=== PATIENT | female | born 1950 | race Caucasian/White ===

== ENCOUNTER 2016-05-05 22:28 | Emergency (ER) | payer OTHER ==
--- NOTE | 2016-05-05 23:16 | PROVIDER DOCUMENTATION ---
HPI-General Adult - General Chief Complaint: Shortness of Breath Stated Complaint: TROUBLE BREATHING Time Seen by Provider: 05/05/16 23:00 Source: patient Allergies/Adverse Reactions: Patient Allergies Allergy/AdvReac Type Severity Reaction Status Date / Time aripiprazole [From Abilify] AdvReac Mild Unknown Verified 05/05/16 22:37 duloxetine HCl * AdvReac Mild Unknown Verified 05/05/16 22:37 [From Cymbalta] Home Medications: Home Medication List Medication Instructions Recorded Confirmed Last Taken Type Clonazepam [Klonopin] 0.5 mg PO PRN PRN 12/09/11 05/05/16 05/05/16 History Zolpidem [Ambien] 10 mg PO QHS 12/09/11 05/05/16 05/04/16 History Citalopram [Celexa] 40 mg PO DAILY 05/03/12 05/05/16 05/05/16 History Quetiapine [Seroquel] 50 mg PO QHS 05/03/12 05/05/16 05/04/16 History Amlodipine [Norvasc] 5 mg PO DAILY 07/08/15 05/05/16 05/05/16 History Lisinopril 10 mg PO DAILY 07/08/15 05/05/16 05/05/16 History Mirtazapine [Remeron] 30 mg PO QHS 09/07/15 05/05/16 05/04/16 History Oxycodone HCl/Acetaminophen 1 tab PO BID PRN PRN 09/07/15 05/05/16 05/05/16 20: 00 History [Percocet 7.5-325 mg Tablet] Potassium Chloride [K-Tab] 10 meq PO DAILY #10 tablet.er 09/07/15 05/05/1605/05 20:00 Rx Tizanidine HCl [Zanaflex] 4 mg PO Q12H PRN PRN #10 tablet 01/08/16 05/05/1612/12 Rx Levofloxacin [Levaquin] 500 mg PO DAILY #10 tablet 05/05/16 Unknown Rx Prednisone 20 mg PO BID #10 tablet 05/05/16 Unknown Rx - History of Present Illness -Gen Adult Nature of Presenting Problems: PT IS A 65YOF PRESENTING TO THE ED C/O SOB. PT STATES SHE HAS PAIN UNDER RIGHT BREAST WHEN SHE TAKES A DEEP BREATHE AND SHE ALSO ASKED FOR DILAUID FOR HER PAIN. NO OTHER COMPLAINTS NOTED AT THIS TIME Location of Pain/Injury: reports: chest Pain Radiation: reports: no radiation Quality of Pain: reports: aching Severity: reports: mild Onset/Duration: reports: 24 hours ago Timing: reports: still present Context/Activities at Onset: reports: light activity Modifying Factors: improves with: nothing Associated Symptoms: reports: anxiety, chest pain, shortness of breath, pain with inspiration. denies: diaphoresis, fatigue, nausea, vomiting, weakness Similar Symptoms Previously?: No Recently seen or treated by another doctor?: No Review of Systems - Adult - REVIEW OF SYSTEMS - ADULT Constitutional: reports: no symptoms reported Eyes: reports: no symptoms reported Ears, Nose, Mouth & Throat: reports: no symptoms reported Cardiovascular: reports: see HPI, chest pain. denies: palpitations, syncope Respiratory: reports: see HPI, cough, shortness of breath. denies: wheezing Gastrointestinal: reports: no symptoms reported Genitourinary: reports: no symptoms reported Musculoskeletal: reports: no symptoms reported Integumentary: reports: no symptoms reported Neurological: reports: no symptoms reported Psychiatric: reports: no symptoms reported Endocrine: reports: no symptoms reported Hematologic/Lymphatic: reports: no symptoms reported Allergic/Immunologic: reports: no symptoms reported All Other Systems: Reviewed and Negative Past History - Adult - PAST MEDICAL HISTORY-ADULT Review of Records: reports: Old Records Reviewed, Nursing Assessment Review, Medications Reviewed, Social history reviewed & non-contributory. Major Childhood Illnesses: reports: denies history Cardiovascular: reports: HTN Respiratory: reports: sleep apnea Gastrointestinal: reports: denies history Obstetrical/Gynecological: reports: denies history Genitourinary: reports: denies history Musculoskeletal: reports: arthritis, fibromyalgia Neurological: reports: headaches/migraines Endocrine/Immune: reports: denies history Other Conditions: reports: denies history - PRIOR SURGERIES/PROCEDURES Surgical/Procedure History: reports: hysterectomy, back/neck - IMMUNIZATION STATUS Childhood Immunizations: See Nurse Assessment Flu Vaccine: See Nurse Assessment - FAMILY HISTORY Family History: reviewed, not pertinent - SOCIAL HISTORY Smoking: cigarettes, greater than 1 pack/day Provider spent 3-5 mins advising pt. on dangers of tobacco.: Discussed manners to quit use, and f/u contacts for add'l counseling. Substance Use: none/never, denies Alcohol Use Frequency: never Living Situation: family Physical Exam-General - PHYSICAL EXAM-ADULT Initial Vital Signs Reviewed: Yes - CONSTITUTIONAL General Appearance: appears well, alert, moderate distress - EYES Eyes: PERRL/EOMI, pink conjunctivae, fundi clear, no AV nicking - HEAD, EARS, NOSE, MOUTH & THROAT HENMT: normocephalic/atraumatic, moist mucous membranes, normal ENT inspection, TMs normal, pharynx normal - NECK Neck: non-tender, full range of motion, supple, normal inspection - RESPIRATORY Respiratory: lungs clear, normal breath sounds, no respiratory distress, no accessory muscle use. negative: chest non-tender, no pleuratic chest pain, accessory muscle use, wheezing - CARDIOVASCULAR Cardiovascular: normal peripheral pulses, regular rate, rhythm, no edema, no gallop, no JVD, no murmur - GASTROINTESTINAL (ABDOMEN) Abdominal Exam: normal bowel sounds, non tender, soft, no organomegaly, no pulsatile mass - LYMPHATIC Lymphatic: no adenopathy - MUSCULOSKELETAL Back Exam: normal inspection, no CVA tenderness, no vertebral tenderness Extremity: normal range of motion, non-tender, normal gait, normal inspection, no pedal edema, no calf tenderness, normal capillary refill, pelvis stable - SKIN Integumentary: normal color, normal turgor, warm/dry - NEUROLOGIC Neurologic: cardiology nurse II-XII nml as tested, grossly normal, no motor/sensory deficits - PSYCHIATRIC Psych/Mental Status: normal mood/affect, normal thought content, normal thought process, oriented x 3 Progress - PLAN OF CARE/RESULTS Progress/Plan/Lab Results: Orders Category Date Time Status CHEST-2 VIEWS [RAD] Stat Exams 05/05/16 23:05 Taken EKG [EKG] Stat Ther 05/05/16 23:06 Ordered Vital Signs - 24 hr 05/05/16 22:30 Temperature 97.6 F Pulse Rate 91 H Respiratory 20 Rate Blood Pressure 125/75 O2 Sat by Pulse 99 Oximetry Departure - Departure Time of Disposition Order: 23:38 DIAGNOSIS: Pleurisy Disposition: HOME 01 Certified Medical Emergency: Emergent Condition: Stable Prescriptions: Levofloxacin [Levaquin] 500 mg PO DAILY #10 tablet Prednisone 20 mg PO BID #10 tablet Attestation - Scribe Verification/Attestation Scribe:: Julia Ashley Acting as Scribe for:: Jameson Lawrence Scribe documention review:: This chart was documented by a scribe and accurately reflects the service the provider performed and the decisions made by the provider. Physician Attestation - Physician Attestation I, the provider, attest to the following statement:: Jameson Lawrence Physician documentation Attestation:: This documentation recorded by the scribe accurately reflects the service I personally performed and the decisions made by me.
[2016-05-05] MEDS ORDERED: DILAUDID IM ONE (23:42)
[2016-05-05] MEDS ORDERED: PHENERGAN IM ONE (23:43)
[2016-05-06 00:09] VITALS: BP 127/73
--- NOTE | 2016-05-06 00:39 | ED EKG INTERP ---
EKG Interpretation - EKG Time of EKG reading by physician:: 23:22 EKG Read and Signed by:: Jameson Lawrence EKG Interpretation (*Must complete 3 of following elements*): Abnormal Rate: 84 Rhythm: NSR [place]: normal QRS: other (SEPTAL INFARCT, AGE UNDETERMINED) Attestation - Scribe Verification/Attestation Scribe:: Julia Ashley Acting as Scribe for:: Jameson Lawrence Scribe documention review:: This chart was documented by a scribe and accurately reflects the service the provider performed and the decisions made by the provider. Physician Attestation - Physician Attestation I, the provider, attest to the following statement:: Jameson Lawrence Physician documentation Attestation:: This documentation recorded by the scribe accurately reflects the service I personally performed and the decisions made by me.
--- NOTE | 2016-05-06 06:31 | EKG Report ---
Test Performed on : 05/05/2016 11:21:11 PM Test Reason : SOB, right chest pain Blood Pressure : / mmHG Vent. Rate : 084 BPM Atrial Rate : 084 BPM P-R Int : 174 ms QRS Dur : 078 ms QT Int : 368 ms P-R-T Axes : 031 -19 018 degrees QTc Int : 434 ms Normal sinus rhythm. Septal infarct , age undetermined Abnormal ECG When compared with ECG of 08-JAN-2016 14:36, Septal infarct is now present ST now depressed in Anterior leads Nonspecific T wave abnormality now evident in Anterior leads Unconfirmed Result
--- NOTE | 2016-05-06 12:54 | Diag Imaging Result Document ---
PROCEDURE NAME: CHEST-2 VIEWS - 05/05/2016 CHEST, 2 VIEWS: COMPARISON: 08/28/2015. FINDINGS: Heart size is normal. There is apparent mild interstitial scarring. There is no acute consolidation, pleural effusion, or pneumothorax identified. There is exaggerated kyphosis at the lower thoracic spine with degenerative disease noted, similar to the previous exam. IMPRESSION: Mild interstitial scarring. No acute changes.
== END 2016-05-06 00:18 | disposition home or self-care (01) ==
LOC: P.ED 22:28
DX: R09.1 Pleurisy (principal); R06.02 Shortness of breath; R07.9 Chest pain, unspecified; I10 Essential (primary) hypertension; M19.90 Unspecified osteoarthritis, unspecified site; M79.7 Fibromyalgia; R51 Headache; R94.31 Abnormal electrocardiogram [ECG] [EKG]; Z79.899 Other long term (current) drug therapy; F17.210 Nicotine dependence, cigarettes, uncomplicated; Z71.6 Tobacco abuse counseling
CPT/HCPCS: 71020; 93005; 96372; J1170; J2550

== ENCOUNTER 2018-03-14 09:48 | Inpatient (IN) ==
[2018-03-14] MEDS ORDERED: NS 2,000 ML ONE (10:00)
[2018-03-14] MEDS ORDERED: NS 1,000 ML IV ONE ×2 (10:05→10:09)
[2018-03-14] MEDS ORDERED: NS 250 ML IV ONE (10:09)
[2018-03-14 10:28] LABS: BASO# 0.01 X1000 (0.0-0.2); BASO% 0.1 % (0.0-0.8); EOS# 0.02 X1000 (0.0-0.7); EOS% 0.2 % (0.0-10.0); HEMOGLOBIN 12.7 g/dL (12.0-16.0); IMM GRAN# 0.03 X1000 (0.0-0.04); IMM GRAN% 0.3 % (0.0-0.5); LYMPH# 1.41 X1000 (1.2-3.4); LYMPH% 13.4 % (20.5-51.1); MCH 30.9 PG (27-31); MCHC 33.4 g/dL (33-37); MCV 92.5 FL (81-99); MONO# 0.38 X1000 (0.11-0.59); MONO% 3.6 % (1.7-9.3); MPV 9.4 FL (7.4-10.4); NEUT# 8.68 X1000 (1.4-6.5); NEUT% 82.4 % (42.2-75.2); PLT 266 X1000 (130-400); RBC 4.11 XMIL (4.2-5.4); RDW 14.1 % (11.5-14.5); WBC 10.53 X1000 (4.8-10.8)
--- NOTE | 2018-03-14 10:42 | Diag Imaging Result Doc PS360 ---
EXAM: CHEST-PORTABLE 03/14/2018 HISTORY: ams TECHNIQUE: AP upright portable at 1040 COMMENT: The inspiration is suboptimal. There is some questionable platelike atelectasis in the lower mid right lung probably in the lower lobe. Otherwise the appearance of the chest has not changed significantly since 06/02/2016. IMPRESSION: Platelike atelectasis on the right. Electronically signed by Otf [place] 03/14/2018 10:40 AM
--- NOTE | 2018-03-14 10:44 | EKG Report ---
Test Performed on : 03/14/2018 09:57:33 AM Test Reason : ams Blood Pressure : / mmHG Vent. Rate : 063 BPM Atrial Rate : 063 BPM P-R Int : 174 ms QRS Dur : 082 ms QT Int : 422 ms P-R-T Axes : 011 -05 019 degrees QTc Int : 431 ms Sinus rhythm. with premature atrial complexes. Low voltage QRS Cannot rule out Anterior infarct (cited on or before 05-MAY-2016) Abnormal ECG When compared with ECG of 05-MAY-2016 23:21, premature atrial complexes. are now present Questionable change in initial forces of Anteroseptal leads Unconfirmed Result
--- NOTE | 2018-03-14 10:49 | Diag Imaging Result Doc PS360 ---
CT HEAD W/O CONTRAST - 03/14/2018 INDICATION: ams COMPARISON: 12/30/2014 FINDINGS: The ventricles and sulci are normal in size and contour. No intracranial mass or hemorrhage. The skull is intact. The sinuses mastoids and middle ears are clear. IMPRESSION: Negative exam. This exam was performed using automated exposure control, adjustment of mA or kV according to patient size, and/or use of iterative reconstruction technique Electronically signed by Raymundo Pires 03/14/2018 10:47 AM
[2018-03-14 10:58] LABS: INR 1.19
[2018-03-14 10:59] LABS: PTT 44.6 Seconds (22.3-41.8)
[2018-03-14 11:15] LABS: ALLEN TEST YES; BE -3.8 mmoll (-3.0-3.0); BLOOD TYPE ARTERIAL; HCO3-(ACT) 21.9 mmoll (20.0-26.0); METHB 1.4 % (0.0-1.5); O2(CT) 15.1 mL/dL (15.0-23.0); PCO2(98.6) 35 mmHg (35-45); PO2(98.6) 77 mmHg (60-100); SAMPLE BLOOD; SAO2 97.5 % (95.0-100.0); THB 11.5 g/dL (11.5-17.4); pH(98.6) 7.38 (7.35-7.45)
[2018-03-14 11:18] LABS: MODALITY CANNULA
[2018-03-14 11:20] LABS: ALB/GLOB RATIO 0.9; ALBUMIN 3.1 g/dL (3.5-5.0); CALCIUM 8.6 mg/dL (8.8-10.2); CREATININE 1.3 mg/dL (0.5-0.9); POTASSIUM 3.1 mmol/L (3.5-5.1); TOTAL BILIRUBIN 0.3 mg/dL (0.20-1.00); TOTAL PROTEIN 6.7 g/dL (6.3-8.3)
[2018-03-14 11:30] LABS: URINE SOURCE CATH
[2018-03-14 11:41] LABS: BILIRUBIN URINE SMALL (NEGATIVE); BLOOD URINE TRACE (NEGATIVE); COLOR YELLOW; GLUCOSE URINE NEGATIVE (NEGATIVE); KETONE URINE NEGATIVE (NEGATIVE); LEUKOCYTES URINE TRACE (NEGATIVE); NITRITE URINE NEGATIVE (NEGATIVE); PROTEIN URINE 50 mg/dL (NEGATIVE); SP GRAVITY URINE 1.017; TURBIDITY URINE HAZY (CLEAR); UROBILINOGEN URINE 3 mg/dL (NORMAL)
[2018-03-14 11:51] LABS: UR EPITHELIAL CELLS >10 /HPF (<10); URINE BACTERIA NEGATIVE /HPF; URINE RBC <10 /HPF (<10); URINE WBC <10 /HPF (<10)
[2018-03-14 11:52] LABS: CK INDEX 0.4 (0.0-2.5); CK-MB 1.96 ng/mL (0.0-5.0)
[2018-03-14 12:06] LABS: URINE CASTS NONE SEEN; URINE CRYSTALS NONE SEEN; URINE SMALL ROUND CELLS RENAL PRESENT; URINE YEAST NONE SEEN
[2018-03-14] MEDS ORDERED: ZOSYN 3.375 GM in NS 50 ML IV ONE (12:13)
[2018-03-14] MEDS ORDERED: VANCOMYCIN 1 GM/NS 1 GM/250 ML IVPB IV ONE (12:13)
[2018-03-14] MEDS ORDERED: ALBUTEROL NEB INH ONE (12:14)
[2018-03-14 13:15] LABS: UR AMPHETAMINES QUAL NONE DETECTED (NONE DETECT); UR BARBITUATES QUAL NONE DETECTED (NONE DETECT); UR BENZODIAZEPIN QUAL PRESUMPTIVE POSITIVE (NONE DETECT); UR CANNABINOIDS QUAL NONE DETECTED (NONE DETECT); UR COCAINE QUAL NONE DETECTED (NONE DETECT); UR METHADONE QUAL NONE DETECTED (NONE DETECT); UR OPIATES QUAL NONE DETECTED (NONE DETECT); UR OXYCODONE QUAL PRESUMPTIVE POSITIVE (NONE DETECT); UR PCP QUAL NONE DETECTED (NONE DETECT)
[2018-03-14] MEDS ORDERED: TYLENOL PO PRN (13:56)
[2018-03-14] MEDS ORDERED: ZOFRAN IV PRN (13:56)
[2018-03-14] MEDS: NICODERM PATCH TD SCH (14:15)
--- NOTE | 2018-03-14 14:30 | Diag Imaging Result Doc PS360 ---
EXAM: CT THORAX W/O CONTRAST HISTORY: sob; heavy smoker; hypotensive TECHNIQUE: Emergency CT chest without contrast COMPARISON: 01/12/2017 FINDINGS: No pleural effusions. No cardiomegaly. No thoracic aortic aneurysm. Moderate atherosclerosis. There calcified mediastinal and hilar lymph nodes with scattered granuloma. No consolidation. Small stable nodule laterally in the right lung on image 56. No bronchiectasis. There is a small amount of parenchymal scarring. Limited images through the upper abdomen reveal an enlarged left adrenal gland and fatty infiltration of the liver. IMPRESSION: Stable CT of the chest. This exam was performed using automated exposure control, adjustment of mA or kV according to patient size, and/or use of iterative reconstruction technique. Electronically signed by Des Rodriguez 03/14/2018 2:28 PM
[2018-03-14] MEDS: DUONEB (A & A) INH SCH ×2 (15:00→21:36)
[2018-03-14] MEDS ORDERED: KLOR-CON PO ONE (15:07)
--- NOTE | 2018-03-14 15:13 | PROVIDER DOCUMENTATION ---
This chart was entered by Erum Cifuentes Scribe, acting as scribe for Sanjay Alvarez PA. HPI-General Adult - General Chief Complaint: Altered Mental Status Stated Complaint: AMS Time Seen by Provider: 03/14/18 09:59 Source: patient, family Allergies/Adverse Reactions: Patient Allergies Allergy/AdvReac Type Severity Reaction Status Date / Time aripiprazole [From Abilify] AdvReac Mild Unknown Verified 03/14/18 10:24 duloxetine HCl * AdvReac Mild Unknown Verified 03/14/18 10:24 [From Cymbalta] Home Medications: Home Medication List Medication Instructions Recorded Confirmed Last Taken Type Clonazepam [Klonopin] 0.5 mg PO PRN PRN 12/09/11 01/12/17 05/05/16 History Zolpidem [Ambien] 10 mg PO QHS 12/09/11 01/12/17 05/04/16 History Citalopram [Celexa] 40 mg PO DAILY 05/03/12 01/12/17 05/05/16 History Quetiapine [Seroquel] 50 mg PO QHS 05/03/12 01/12/17 05/04/16 History Amlodipine [Norvasc] 5 mg PO DAILY 07/08/15 01/12/17 05/05/16 History Lisinopril 10 mg PO DAILY 07/08/15 01/12/17 05/05/16 History Mirtazapine [Remeron] 30 mg PO QHS 09/07/15 01/12/17 05/04/16 History Oxycodone HCl/Acetaminophen 1 tab PO BID PRN PRN 09/07/15 01/12/17 05/05/16 20: 00 History [Percocet 7.5-325 mg Tablet] Potassium Chloride [K-Tab] 10 meq PO DAILY #10 tablet.er 09/07/15 01/12/1705/05 20:00 Rx Tizanidine HCl [Zanaflex] 4 mg PO Q12H PRN PRN #10 tablet 01/08/16 01/12/1712/12 Rx Sulfamethoxazole/Tmp D.s. [Septra 1 ea PO BID #14 tab 01/12/17 Unknown Rx Ds] - History of Present Illness -Gen Adult Nature of Presenting Problems: 67 yof presents to the ed with c/o confusion per family and slow to answer. pt has had recent fall. on exam pt is a/o x3 and no distress Location of Pain/Injury: reports: none Pain Radiation: reports: no radiation Quality of Pain: reports: none Severity: reports: mild (confusion) Onset/Duration: reports: gradual Timing: reports: gone now Context/Activities at Onset: reports: light activity Modifying Factors: improves with: nothing Associated Symptoms: reports: cough, other (fall and mild confusion). denies: back/neck pain, chest pain, dizziness, malaise, muscle aches, nausea, seizure, shortness of breath, weakness, trouble walking Similar Symptoms Previously?: No Recently seen or treated by another doctor?: No Review of Systems - Adult - REVIEW OF SYSTEMS - ADULT Constitutional: denies: see HPI, fever Eyes: reports: no symptoms reported Ears, Nose, Mouth & Throat: reports: no symptoms reported Cardiovascular: denies: chest pain, palpitations, syncope Respiratory: reports: see HPI, cough. denies: shortness of breath, wheezing Gastrointestinal: denies: abdominal pain, diarrhea, nausea, vomiting Genitourinary: reports: no symptoms reported Musculoskeletal: denies: back pain, neck pain Integumentary: reports: no symptoms reported Neurological: reports: see HPI, other (mil confusion). denies: ataxia, dizziness/vertigo, headache/migraines, numbness, paresthesia, seizure, slurred speech Psychiatric: reports: no symptoms reported Endocrine: reports: no symptoms reported Hematologic/Lymphatic: reports: no symptoms reported Allergic/Immunologic: reports: no symptoms reported All Other Systems: Reviewed and Negative Past History - Adult - PAST MEDICAL HISTORY-ADULT Review of Records: reports: Old Records Reviewed, Nursing Assessment Review, Medications Reviewed, Social history reviewed & non-contributory. Major Childhood Illnesses: reports: denies history Cardiovascular: reports: HTN Respiratory: reports: sleep apnea Gastrointestinal: reports: denies history Obstetrical/Gynecological: reports: denies history Genitourinary: reports: denies history Musculoskeletal: reports: arthritis, chronic pain, fibromyalgia Neurological: reports: headaches/migraines Endocrine/Immune: reports: denies history Other Conditions: reports: denies history - PRIOR SURGERIES/PROCEDURES Surgical/Procedure History: reports: hysterectomy, back/neck - IMMUNIZATION STATUS Childhood Immunizations: See Nurse Assessment Flu Vaccine: See Nurse Assessment - FAMILY HISTORY Family History: reviewed, not pertinent - SOCIAL HISTORY Smoking: cigarettes, greater than 1 pack/day Provider spent 3-5 mins advising pt. on dangers of tobacco.: Discussed manners to quit use, and f/u contacts for add'l counseling. Substance Use: denies Alcohol Use Frequency: never Living Situation: family Physical Exam-General - PHYSICAL EXAM-ADULT Initial Vital Signs Reviewed: Yes - CONSTITUTIONAL General Appearance: appears well, alert, no apparent distress, slow to respond - EYES Eyes: PERRL/EOMI, pink conjunctivae - HEAD, EARS, NOSE, MOUTH & THROAT HENMT: moist mucous membranes, normal ENT inspection - NECK Neck: non-tender, full range of motion, supple, normal inspection - RESPIRATORY Respiratory: chest non-tender, decreased breath sounds, wheezing - CARDIOVASCULAR Cardiovascular: normal peripheral pulses, regular rate, rhythm - GASTROINTESTINAL (ABDOMEN) Abdominal Exam: normal bowel sounds, non tender, soft - GENITOURINARY Female Genitalia/Pelvic Exam: deferred, other (strong urine smell) Rectal Exam: deferred Hemoccult Exam: deferred - LYMPHATIC Lymphatic: no adenopathy - MUSCULOSKELETAL Back Exam: normal inspection, no CVA tenderness, no vertebral tenderness Extremity: normal range of motion, non-tender, normal inspection, no pedal edema , no calf tenderness, normal capillary refill - SKIN Integumentary: normal color, normal turgor, warm/dry, other (nicotine stained finger tips) - NEUROLOGIC Neurologic: grossly normal, no motor/sensory deficits - PSYCHIATRIC Psych/Mental Status: normal mood/affect, normal thought content, normal thought process, oriented x 3 Progress - PLAN OF CARE/RESULTS Progress/Plan/Lab Results: Laboratory Results - last 24 hr 03/14/18 09:57 POC Glucose 144 H Orders Category Date Time Status 0.9% Sodium Chloride Inj [Ns] 1,000 ml Med 03/14/18 10:00 Discontinued .ROUTE As Directed Patient seen and examined by Dr. Rodríguez. Result Diagrams: 03/14/18 10:10 03/14/18 10:10 - REASSESSMENT Reassessment #1 Time Reassessed: 11:02 Status: improving Reassessment #2 Time Reassessed: 12:29 Status: unchanged - EKG 1 Time of EKG reading by physician:: 09:57 EKG Read and Signed by:: Rosalio Rodríguez EKG Interpretation (*Must complete 3 of following elements*): Abnormal Rate: 63 Rhythm: sinus rhythm with premature atrial complexes QRS: normal [place] Interval: normal - XRAY 1 XRAY: Bilateral XRAY Study: Chest (EXAM: CHEST-PORTABLE 03/14/2018 HISTORY: ams TECHNIQUE: AP upright portable at 1040 COMMENT: The inspiration is suboptimal. There is some questionable platelike atelectasis in the lower mid right lung probably in the lower lobe. Otherwise the appearance of the chest has not changed significantly since 06/02/2016. IMPRESSION: Platelike atelectasis on the right. Electronically signed by Otf [place] 03/14/2018 10:40 AM 1040 Interpreting Physician: Otf [place] MD Dictated Date/Time: 03/14/18 1039 cc: Sanjay Alvarez; Justice Jaimes MD) - CT/MRI 1 CT Study: Head (CT HEAD W/O CONTRAST - 03/14/2018 INDICATION: ams COMPARISON : 12/30/2014 FINDINGS: The ventricles and sulci are normal in size and contour. No intracranial mass or hemorrhage. The skull is intact. The sinuses mastoids and middle ears are clear. IMPRESSION: Negative exam. This exam was performed using automated exposure control, adjustment of mA or kV according to patient size, and/or use of iterative reconstruction technique Electronically signed by Raymundo Pires 03/14/2018 10:47 AM 03/14/18 1047 Interpreting Physician: Raymundo Pires MD Dictated Date/Time: 03/14/18 1045 cc: Sanjay Alvarez; Justice Jaimes MD) - CONSULTS/PCP/HOSPITALIST Notification #1 *Consult/PCP/Hospitalist*: hospitalist dr balderas Time Discussed: 12:29 Reason/Comments: ams falls Consult Disposition: Admit Departure - Departure Date of Disposition Decision: 03/14/18 Time of Disposition Decision: 12:32 DIAGNOSIS: Tobacco use disorder, Elevated lactic acid level, Hyponatremia Altered mental status Qualifiers: Altered mental status type: unspecified Qualified Code(s): R41.82 - Altered mental status, unspecified Fall Qualifiers: Encounter type: initial encounter Qualified Code(s): W19.XXXA - Unspecified fall, initial encounter Hypotension Qualifiers: Hypotension type: unspecified hypotension type Qualified Code(s): I95.9 - Hypotension, unspecified Disposition: ADMITTED INPATIENT 09 Certified Medical Emergency: Emergent Condition: Fair Referrals and Follow-Ups: Justice Jaimes MD [Primary Care Provider] - Discharge Education: Steps to Quit Smoking, [id number] - Critical Care Note This patient required my direct & personal management of CC.: Yes Total Time (mins): 45 Critical Care Statement: This patient required my direct personal management to treat or rule out processes, the absence of which, could potentiallly result in sudden, clinically significant life or limb threatening deterioration. Attestation - Physician/ ÁNGEL Attestation Patient care was provided by Advanced Practice Provider:: Yes Advanced Practice Provider:: Sanjay Alvarez Advanced Practice Provider documentation review:: The Mid-level provider documentation, treatment plan and medical decision making was reviewed by the physician who agrees with all treatment and medical decision making by the P. The physician spent face to face time with patient:: Yes Advanced Practice Provider documentation review:: Supervising physician onsite and consulted in the evaluation and care of this patient. The physician did have a face to face encounter with the patient. This chart was documented by the indicated scribe, (Erum Cifuentes Scribe) and accurately reflects the services I performed and decisions made by me, Sanjay Alvarez PA, as attested by the provider's signature.
--- NOTE | 2018-03-14 15:26 | HISTORY AND PHYSICAL ---
PRIMARY CARE PROVIDER: Dr. Justice Jaimes. She also has a pain clinic physician in [place]. CHIEF COMPLAINT: Falls, dizziness, difficulties with her words coming out right , and burning with urination. HISTORY OF PRESENT ILLNESS: Ms. Jamila Dennis is a 67-year-old female with a medical history of chronic back pain that she goes to a pain clinic for, depression, anxiety, migraines, and apparently, per one of the daughters, she tends to have self medication issues with her pain medication and anxiety medication. Back in 2010 she was admitted her for some of the same kind of complaints or similar complaints. At that time, she was seen by Dr. Oscar and he felt like this was a medication effect. So, according to her, for the past few weeks she has been planning to move out. She has noticed that she has had the hand shakes, cannot close her right hand, she has been having some pain in her right ankle and right great toe due to a fall, and she has had frequent falls that has been going on for the last month and a half. According to the grandson, who was at the bedside, she fell five times yesterday and she has a left forearm skin tear. When further questioning on her medication intake, she states that she took 2 mg of Klonopin. She took her pain medication and repeated taking her pain medication one other time and her muscle relaxers. She is also on antihypertensive medications, which she has been continuing to take, and when she presented here, she presented here with a low blood pressure in the 80s. The highest it has gotten up to is the 90s. She does have some dizziness associated with her falls. She also has complaint of a little over a week ago having a headache with fever, body aches, and bladder pain. She states that she is still having burning with her urination. She is having frequency and urinary incontinence. She was given a prescription this past Sunday for Bactrim that she has been taking but symptoms have not completely improved, so they came here with the complaints of falls, dizziness, and burning urination. Currently, she has received IV fluid hydration. She does have an elevated lactate with the low blood pressure, but otherwise all other labs are normal and vitals as well. The patient will be transferred to [facility] to monitor the blood pressure a little better but likely will just need IV fluid hydration and allow her pain medications to slowly decrease in her system and her antihypertensives also to get out of her system as well. Otherwise, she is stable. PAST MEDICAL HISTORY: 1. Depression and anxiety. 2. Migraines. 3. Constipation. 4. Obstructive sleep apnea. She used to use a CPAP but had lost around 30 pounds and she does not wear it anymore. 5. Arthritis. 6. Urinary incontinence with a couple of surgeries for that. 7. COPD. 8. CKD stage 2. 9. Hypertension. 10.Chronic back pain. She is followed by pain clinic in [place]. SURGICAL HISTORY: 1. Hysterectomy. 2. Bladder sling x2. 3. Tonsillectomy. 4. Three or four months ago she had an EGD and colonoscopy. SOCIAL HISTORY: One to two packs per day of smoking for at least 50+ years. Denies alcohol or illicit drug use, but apparently reported by family she does tend to self medication herself with her prescription medications. She has two daughters and one son. She lives with one of her daughters and her two grandsons. Apparently, her also around four years ago. FAMILY HISTORY: Mother's side of the family - breast cancer and diabetes. Father's side of the family - diabetes, thyroid disease, and heart disease. ALLERGIES: Hydrocodone causes itching and amoxicillin causes diarrhea. She also has an allergy to aripiprazole and duloxetine. HOME MEDICATIONS: Have not been verified but she takes Klonopin, muscle relaxer, pain medication, and antihypertensive. We will reevaluate home medications once reconciled. REVIEW OF SYSTEMS: A 14-point review of systems are complete and all are negative except as those mentioned above in the HPI. PHYSICAL EXAMINATION: VITAL SIGNS: Temperature 99. Heart rate 70. Respiratory rate 18. Blood pressure 88/51. O2 saturation 98% on 2 liters. Height 5 feet 0 inches tall, 170 pounds, BMI 33.2. GENERAL: Ms. Jamila Dennis is a 67-year-old female. She is alert. She is able to answer most questions appropriately. HEENT: Atraumatic and normocephalic. Pupils are equal, round and reactive to light. Extraocular movements intact. Mucous membranes are dry. NECK: Trachea midline. CARDIOVASCULAR: S1, S2, regular rate and rhythm. No rubs, gallops, or murmurs. No lower extremity edema. +2 dorsalis and radial pulses. Negative for JVD or carotid bruits. PULMONARY: Clear to auscultation with bilateral breath sounds. Decreased in the bases. No accessory muscle use or work of breathing noted. Tolerating 2 liters nasal cannula. GASTROINTESTINAL: Soft, nontender, nondistended. Positive bowel sounds x4. EXTREMITIES: Moves all extremities equally with decreased range of motion. NEUROLOGICAL: Alert and oriented x3, follows commands. Sensory is intact. SKIN: Warm, dry, and intact except for left forearm skin tear. LABORATORY DATA: White blood cells 10,000, hemoglobin 12, hematocrit 38, platelet count 266. INR is 1.19. PTT is 44.6. ABGs on 2 L - pH 7.38, pCO2 35, pO2 77, bicarb 21, base excess negative 3.8, saturation 93% with a lactate of 1.1. Serum lactate 2.7. Sodium 131, potassium 3.1, BUN 13, creatinine 1.3, glucose 123, calcium 8.6, bilirubin 0.30, AST 14, ALT 6. CK 498. Troponin less than 0.01. Albumin 3.1. Urinalysis with 50 protein, trace blood, small bilirubin, trace leukocytes, otherwise appears negative. Urine drug screen positive for oxycodone and positive for benzodiazepines. Alcohol level 0. IMAGING: Chest x-ray: Atelectasis in the right base. Head CT: Negative exam. ASSESSMENT AND PLAN: 1. Hypotension. Could be from infection. Could be from antihypertensives on top of dehydration. Could be from overmedicating herself with her pain medication and Klonopin. So, will monitor in [facility]. She received intravenous fluid boluses per sepsis protocol and will continue her with intravenous fluid hydration. Will allow for the medications , as described, to be decreased and will hold those medications for now. 2. Failed outpatient treatment for urinary tract infection. She still has the symptoms, although urinalysis does not exactly look like a urinary tract infection. She did receive broad spectrum antibiotics on admission but will just continue with the Zosyn. Will repeat her lactate, it was up a little bit but it is probably from the dehydration. 3. Chronic kidney disease, stage 2. She is at baseline. Her creatinine is 1.3. Still, she will receive intravenous fluid hydration. 4. Hypertension. Holding antihypertensives given that she is hypotensive at this time. 5. Chronic back pain. Holding pain medications for now, but will probably need to resume so she does not have withdrawal. 6. Encephalopathy. It is probably from taking her medications. Will monitor. 7. Chronic obstructive pulmonary disease history. Will continue with nebulizers. 8. Tobacco abuse. She is a heavy smoker. She will go for a chest CT to evaluate for anything. She also wishes for nicotine patch. Cessation was discussed with her. 9. Deep venous thrombosis prophylaxis. Sequential compression devices for now , as she has frequent falls. 10.Left forearm skin tear. Will monitor. If needed, we can get wound care. Dictated by CHIARA Richardson for Mikey Eastman MD Addendum: Patient seen and examined by myself. Agree with CHIARA note. It reflects my assessment and plan. Patient is being admitted to hospital for hypotension. At this point we are not sure about the reason. Patient reported UTI symptoms and will start her on IV antibiotics and IV fluids. Will send her to [facility] for better monitoring. Will monitor patient closely. cc: CHIARA Richardson MD [facility]
[2018-03-14] MEDS: NS 1,000 ML IV SCH (16:25)
[2018-03-14] MEDS: ZOSYN 3.375 GM in NS 50 ML IV SCH (18:07)
[2018-03-14] MEDS ORDERED: ZYPREXA IM ONE (20:01)
[2018-03-14] MEDS: AMBIEN PO SCH (22:49)
[2018-03-14] MEDS: EFFEXOR PO SCH (22:49)
[2018-03-14] MEDS: ZYPREXA PO SCH (22:50)
[2018-03-14] MEDS: SEROQUEL PO SCH (22:50)
--- NOTE | 2018-03-14 23:51 | ECHO REPORT ---
ORDER DATE: 03/14/2018 MEASUREMENTS: Left ventricular end diastolic diameter 5.2, end systolic diameter 3.5, septal thickness 1.0, posterior wall thickness 1.0, aortic root 3.7, left atrium 3.9. SUMMARY: 1. Adequate quality study. 2. The aortic valve is trileaflet and opens normally on 2-dimensional images. Peak gradient across the aortic valve is less than 10 mmHg. There is trace aortic regurgitation. Mitral, tricuspid, and pulmonic valves are without evidence of structural abnormality with trace mitral regurgitation and mild tricuspid regurgitation. The estimated systolic PA pressure by Doppler is 35 mmHg. The aortic root is normal in size. 3. Normal left ventricular dimensions are demonstrated. Estimated left ventricular ejection fraction appears to be at least 65%. No regional wall abnormalities are evident. The left atrium is upper normal in size. The right atrium and right ventricle are normal size with normal right ventricular systolic function. 4. No pericardial effusion. 5. Appearance of inferior vena cava suggests normal central venous pressure. CONCLUSIONS: 1. Mild tricuspid regurgitation with estimated systolic pulmonary artery pressure 35 mmHg. 2. Normal left ventricular systolic function without wall motion abnormality evident. cc: MD Octavia Lopez CRNP
[2018-03-15] MEDS: ZOSYN 3.375 GM in NS 50 ML IV SCH ×5 (00:44→23:27)
[2018-03-15] MEDS: PERCOCET-10 PO PRN ×3 (01:08→19:46)
[2018-03-15] MEDS: SEROQUEL PO SCH ×3 (01:08→21:55)
[2018-03-15] MEDS: EFFEXOR PO SCH ×3 (01:08→21:55)
[2018-03-15] MEDS: AMBIEN PO SCH ×3 (01:08→21:44)
[2018-03-15] MEDS: DUONEB (A & A) INH SCH ×4 (03:20→21:00)
[2018-03-15 05:51] LABS: EOS# 0.02 X1000 (0.0-0.7); EOS% 0.3 % (0.0-10.0); HEMATOCRIT 36.7 % (37.0-47.0); HEMOGLOBIN 11.9 g/dL (12.0-16.0); LYMPH# 0.99 X1000 (1.2-3.4); LYMPH% 16.1 % (20.5-51.1); MCH 30.3 PG (27-31); MCHC 32.4 g/dL (33-37); MCV 93.4 FL (81-99); MONO# 0.37 X1000 (0.11-0.59); MPV 9.6 FL (7.4-10.4); NEUT# 4.78 X1000 (1.4-6.5); NEUT% 77.6 % (42.2-75.2); PLT 231 X1000 (130-400); RBC 3.93 XMIL (4.2-5.4); RDW 14.2 % (11.5-14.5); WBC 6.16 X1000 (4.8-10.8)
[2018-03-15 05:59] LABS: INR 1.14; PROTIME 15.5 Seconds (11.0-16.0)
[2018-03-15 06:00] LABS: PTT 42.9 Seconds (22.3-41.8)
[2018-03-15 06:42] LABS: AGAP 13; ALB/GLOB RATIO 0.8; ALKALINE PHOSPHATASE 83 U/L (32-104); BUN 10 mg/dL (8-22); CALCIUM 8.4 mg/dL (8.8-10.2); CHLORIDE 106 mmol/L (98-107); COSMO 274; CREATININE 0.7 mg/dL (0.5-0.9); ESTIMATED GFR > 60; GLUCOSE 82 mg/dL (70-104); GOT 20 U/L (10-30); GPT 8 U/L (10-36); MAGNESIUM 1.9 mg/dL (1.5-2.7); POTASSIUM 3.4 mmol/L (3.5-5.1); SODIUM 138 mmol/L (136-145); TCO2 19 mmol/L (25-35); TOTAL PROTEIN 6.7 g/dL (6.3-8.3)
--- NOTE | 2018-03-15 08:09 | Carotid Study ---
DATE: 03/14/2018 PROCEDURE: Carotid duplex imaging. REFERRING PHYSICIAN: INTERPRETING PHYSICIAN: Pavan Vasquez MD. TECH: [place]. INDICATIONS: Falls and dizziness. OBSERVED DATA RIGHT LEFT Brachial Blood Pressure Carotid Pulse Bruits: Carotid/Sub DIAGRAM OF ULTRASOUND IMAGING R L RIGHT INT EXT INT EXT LEFT Melchor (cm/s) Melchor (cm/s) Subclavian 118/8 Subclavian 114/13 CCA Proximal 108/13 CCA Proximal 92/15 CCA Distal 108/15 CCA Distal 91/15 Bulb 81/11 Bulb 80/12 ICA Proximal 72/13 ICA Proximal 69/13 ICA Mid 70/13 ICA Mid 55/12 ICA Distal 52/15 ICA Distal 68/15 ECA 93/6 ECA 83/7 Vertebral 42/9 A Vertebral 30/7 A ICA/CCA Ratio 0.75 ICA/CCA Ratio 0.87 % Stenosis 0-39 % Stenosis 0-39 FINDINGS: No hemodynamically significant lesions or atherosclerotic disease noted in the bilateral carotid artery systems. Vertebrals are antegrade bilaterally. cc: MD Octavia Rodas CRNP MTDD
--- NOTE | 2018-03-15 08:15 | EKG Report ---
Test Performed on : 03/15/2018 07:40:24 AM Test Reason : chest pain Blood Pressure : / mmHG Vent. Rate : 111 BPM Atrial Rate : 111 BPM P-R Int : 168 ms QRS Dur : 082 ms QT Int : 318 ms P-R-T Axes : 057 010 031 degrees QTc Int : 432 ms Sinus tachycardia. Otherwise normal ECG When compared with ECG of 14-MAR-2018 09:57, (Unconfirmed) premature atrial complexes. are no longer present Vent. rate has increased BY 48 BPM Nonspecific T wave abnormality no longer evident in Anterior leads Confirmed by Alanna PARSONS, Jesse Davison ([id number]) on 03/16/2018 10:49:39 AM
[2018-03-15] MEDS: MOVANTIK PO SCH (09:01)
[2018-03-15] MEDS: NICODERM PATCH TD SCH (09:01)
[2018-03-15] MEDS: NS 1,000 ML IV SCH ×2 (09:02→17:34)
[2018-03-15] MEDS: VITAMIN D PO SCH (09:02)
--- NOTE | 2018-03-15 09:28 | PROGRESS NOTE ---
DATE: 03/15/2018 SUBJECTIVE: The patient reports breathing fine. She has pain all over her body. As per nursing staff, she has become very combative. Last night, she pulled out the IV lines and has fought with nursing staff, so we needed to call security to control her. Upon my examination, she has physical restraints on both arms. OBJECTIVE: Vital Signs: Temperature 100.6 degrees, heart rate 109, respiratory rate 18, blood pressure 137/56, O2 saturation 91% on 2 L nasal cannula. General: This is a chronically ill- looking, 67-year-old female lying in bed, in no acute distress. HEENT: Head is normocephalic and atraumatic. Anicteric sclerae and pale conjunctivae. Mucous membranes dry. Neck: No JVD noted. No carotid bruits. No lymphadenopathy. No thyromegaly. Cardiovascular: S1, S2 heard. No murmurs, gallops, or rubs. Regular rate and rhythm. Respiratory: Clear bilaterally to auscultation. Decreased breath sounds in both bases. The patient is not using any accessory muscles or having work of breathing. Abdomen: Soft. Nontender to palpation. Bowel sounds present. No organomegaly. Extremities: No clubbing, cyanosis, or edema. Peripheral pulses present in both legs. Neurological: The patient is alert and oriented x3. Moves 4 extremities. LABORATORY DATA: White cell count 6.15, hemoglobin 11.9, hematocrit 36.7, platelets 231,000. BMP remarkable for potassium 3.4, calcium 8.4. ASSESSMENT AND PLAN: 1. Hypotension. We were called for admission of this patient because she became hypotensive. Currently, she is a hypertensive patient who takes medication for that. Considering that her temperature has been 100.6 today, but white cell count is normal, we prefer to continue with antibiotics, in this case Zosyn. Blood cultures and urine culture are still pending. She has been started on intravenous fluids of normal saline 125 mL/hour, but considering that she has some minimal crackles in both pulmonary bases. I prefer to hold intravenous fluids today and keep an eye on the blood pressure. 2. Failure of outpatient treatment for urinary tract infection. The urinalysis has not shown any signs of infection, but I prefer to continue with antibiotics because the patient is asymptomatic. 3. Chronic kidney disease stage 2. The patient is at baseline. Will continue to monitor BMP. 4. Chronic back pain. We have restarted Percocet on this patient. 5. Acute encephalopathy. The patient has been really agitated and was combative last night. I think part of it is, we have not restarted home medications yet. We are going to do that today and will monitor this patient closely. 6. Chronic obstructive pulmonary disease. The patient does not have any formal diagnosis of chronic obstructive pulmonary disease, but she smoked 2 packs per day since her 20s. At this point, will continue with breathing treatments. 7. Tobacco abuse. The patient is a heavy smoker, smoked [address] of the chest to look for malignancy was negative and actually the nodule that this patient has from apparently a few years ago returned normal. Will continue to monitor. DISPOSITION: At this point, we have restarted home medications for all of her medical conditions, including [employer] medications. Will continue to monitor this patient closely. cc: Mikey Eastman MD
[2018-03-15] MEDS: ZYPREXA PO SCH ×2 (19:46→21:56)
[2018-03-16] MEDS: DUONEB (A & A) INH SCH ×4 (03:05→21:00)
[2018-03-16 05:04] LABS: BASO# 0.02 X1000 (0.0-0.2); BASO% 0.5 % (0.0-0.8); EOS# 0.14 X1000 (0.0-0.7); EOS% 3.7 % (0.0-10.0); HEMATOCRIT 38.2 % (37.0-47.0); HEMOGLOBIN 12.6 g/dL (12.0-16.0); LYMPH# 1.42 X1000 (1.2-3.4); LYMPH% 37.6 % (20.5-51.1); MCH 30.9 PG (27-31); MCV 93.6 FL (81-99); MONO# 0.21 X1000 (0.11-0.59); MONO% 5.6 % (1.7-9.3); MPV 9.5 FL (7.4-10.4); NEUT# 1.99 X1000 (1.4-6.5); NEUT% 52.6 % (42.2-75.2); PLT 243 X1000 (130-400); RBC 4.08 XMIL (4.2-5.4); RDW 14.5 % (11.5-14.5); WBC 3.78 X1000 (4.8-10.8)
[2018-03-16 05:20] LABS: AGAP 12; BUN 7 mg/dL (8-22); CALCIUM 8.2 mg/dL (8.8-10.2); CHLORIDE 105 mmol/L (98-107); COSMO 278; CREATININE 0.7 mg/dL (0.5-0.9); ESTIMATED GFR > 60; GLUCOSE 82 mg/dL (70-104); POTASSIUM 2.9 mmol/L (3.5-5.1); SODIUM 141 mmol/L (136-145); TCO2 24 mmol/L (25-35)
[2018-03-16] MEDS: MOVANTIK PO SCH (06:03)
[2018-03-16] MEDS: ZOSYN 3.375 GM in NS 50 ML IV SCH ×3 (06:03→18:13)
[2018-03-16] MEDS: NICODERM PATCH TD SCH (08:13)
[2018-03-16] MEDS: VITAMIN D PO SCH (08:13)
[2018-03-16] MEDS ORDERED: POTASSIUM CHLORIDE 60 MEQ in NS 500 ML IV ONE (10:30)
[2018-03-16] MEDS: PERCOCET-10 PO PRN ×2 (11:39→21:20)
--- NOTE | 2018-03-16 11:43 | PROGRESS NOTE ---
DATE: 03/16/2018 SUBJECTIVE: The patient reports feeling fine. Nursing staff reports that she was a little bit agitated overnight and having visual and auditory hallucinations. Apparently the patient does not recall any episode. She apparently has pulled out IV lines and tried to walk by herself to the bathroom. OBJECTIVE: Vital signs: Temperature is 98.6, heart rate 92, respiratory rate 18, blood pressure 122/78, O2 saturation is 100% on room air. General: This is a 67-year-old female lying in bed, in no acute distress. Cardiovascular: S1 and S2 heard. No murmurs, rubs or gallops. Regular rate and rhythm. Respiratory: Clear bilaterally to auscultation. Decreased breath sounds globally, but the patient is not using accessory muscles or having work of breathing. Abdomen is soft. Nontender to palpation. Bowel sounds present. No organomegaly. Extremities: No cyanosis, clubbing or edema. Peripheral pulses present in both legs. Neurologic: The patient is alert and oriented x3. Moves all 4 extremities. DIAGNOSTIC DATA: CBC is okay. BMP reveals potassium 2.9. ASSESSMENT AND PLAN: 1. Hypotension. This continue is resolved. We were thinking initially that this patient may have sepsis, but we did not find any source of infection. The patient was symptomatic, showing some symptoms of UTI. She is on Zosyn for medication. Blood culture and urine culture are so far negative. At this point, while the patient is in the hospital, we will continue with Zosyn, but we can change to oral medication at any time. She is not even receiving any IV fluids at all for the last 24 hours. 2. Urinary tract infection. Even though urine culture is negative, considering her symptoms were present on admission, I prefer to go ahead and continue treating her. 3. Chronic kidney disease stage 2. The patient is at baseline. We will continue to monitor. 4. Chronic back pain. We will continue home medications. 5. Acute encephalopathy. This continue is resolved. Actually what she is having are symptoms of hallucinations that are happening mostly at night. Apparently the patient had an episode of schizophrenia or a sort of that problem 10 years ago, and she has been seen by a doctor and for a psychiatrist apparently for the last few years, but at this point, I prefer to consult [facility] and see what they have to say. 6. Chronic obstructive pulmonary disease. The patient may have this condition because of her heavy history of smoking, in this case 2 packs a day since she was 18. We will provide breathing treatments p.r.n. 7. Tobacco abuse. The patient continues to be a smoker. I encouraged her to stop smoking. DISPOSITION: At this point, the patient is going to be moved out of the [facility], and [facility] Romero has been consulted. cc: Mikey Eastman MD
[2018-03-16] MEDS: EFFEXOR PO SCH (21:20)
[2018-03-16] MEDS: SEROQUEL PO SCH (21:20)
[2018-03-16] MEDS: ZYPREXA PO SCH (21:20)
[2018-03-16] MEDS: AMBIEN PO SCH (21:21)
[2018-03-17] MEDS: ZOSYN 3.375 GM in NS 50 ML IV SCH ×4 (02:05→20:50)
[2018-03-17] MEDS: DUONEB (A & A) INH SCH ×4 (03:34→21:00)
[2018-03-17 07:29] LABS: BASO# 0.02 X1000 (0.0-0.2); BASO% 0.4 % (0.0-0.8); EOS% 4.1 % (0.0-10.0); HEMATOCRIT 38.2 % (37.0-47.0); HEMOGLOBIN 12.5 g/dL (12.0-16.0); LYMPH# 2.46 X1000 (1.2-3.4); LYMPH% 50.7 % (20.5-51.1); MCH 30.9 PG (27-31); MCHC 32.7 g/dL (33-37); MCV 94.6 FL (81-99); MONO# 0.42 X1000 (0.11-0.59); MONO% 8.7 % (1.7-9.3); MPV 8.9 FL (7.4-10.4); NEUT# 1.75 X1000 (1.4-6.5); NEUT% 36.1 % (42.2-75.2); PLT 261 X1000 (130-400); RBC 4.04 XMIL (4.2-5.4); RDW 14.8 % (11.5-14.5); WBC 4.85 X1000 (4.8-10.8)
[2018-03-17 08:00] LABS: AGAP 11; BUN 9 mg/dL (8-22); CALCIUM 8.3 mg/dL (8.8-10.2); CHLORIDE 107 mmol/L (98-107); COSMO 281; CREATININE 0.7 mg/dL (0.5-0.9); ESTIMATED GFR > 60; GLUCOSE 89 mg/dL (70-104); POTASSIUM 3.3 mmol/L (3.5-5.1); SODIUM 142 mmol/L (136-145); TCO2 24 mmol/L (25-35)
[2018-03-17] MEDS: VITAMIN D PO SCH ×2 (09:53→10:56)
[2018-03-17] MEDS: MOVANTIK PO SCH ×2 (09:53→10:56)
[2018-03-17] MEDS ORDERED: POTASSIUM CHLORIDE 60 MEQ in NS 500 ML IV ONE ×2 (10:08→11:31)
[2018-03-17] MEDS ORDERED: HALDOL IV PRN (10:34)
[2018-03-17] MEDS: NICODERM PATCH TD SCH (10:55)
[2018-03-17] MEDS: PERCOCET-10 PO PRN ×2 (10:58→20:55)
--- NOTE | 2018-03-17 11:51 | PROGRESS NOTE ---
DATE: 03/17/2018 SUBJECTIVE: The patient is sleeping comfortably this morning. According to nursing staff and also family who is at bedside, reports patient had auditory hallucinations. OBJECTIVE: Vital Signs: Temperature degrees, heart rate 91, respiratory rate 20, blood pressure 121/70, O2 saturation 97% on room air. General: This is a 67-year-old female lying in bed, in no acute distress. Cardiovascular: S1, S2 heard. No murmurs, gallops, or rubs. Regular rate and rhythm. Respiratory: Clear bilaterally to auscultation. No work of breathing or using accessory muscles. Abdomen: Soft, nontender to palpation. Bowel sounds present. No organomegaly. Extremities: No clubbing, cyanosis, or edema. Peripheral pulses present in both legs. Neurological: Patient alert and oriented x3. Moves 4 extremities. LABORATORY DATA: Reveals potassium of 3.3. ASSESSMENT AND PLAN: 1. hypotension, resolved. We initially were told that it was sepsis and actually we continued to use Zosyn for possible UTI even though the urine culture did not reveal any infection. She is not receiving any IV fluids. We will continue with same management. 2. Urinary tract infection, as we mentioned above. 3. Chronic kidney disease stage 2. The patient's creatinine is at baseline. We will continue with same management. 4. Chronic back pain. We will continue home medications. 5. Acute encephalopathy. Patient on admission was very confused. Family, who is at bedside think this could be related to medications. The patient continues to have visual and auditory hallucinations. I think this could be related to dementia. We will use Haldol p.r.n. at night. At the family request, we will consult Dr. Oscar from Neurology to see what else we can do for this patient. In the meantime, we will continue with physical therapy for this patient. 6. COPD. The patient is a very heavy smoker, and she has smoked 2 packs per day since she was a teenager. The patient is receiving a nicotine patch. 7. Disposition. At this point, plan is to keep her until she is evaluated by Dr. Oscar regarding dementia. Then family expressed they decided to send her to rehab facility. We will consult clinical social work therapist. We will go from there. cc: Mikey Eastman MD
[2018-03-17] MEDS: ZYPREXA PO SCH (20:49)
[2018-03-17] MEDS: EFFEXOR PO SCH (20:49)
[2018-03-18] MEDS: AMBIEN PO SCH ×2 (02:58→21:02)
[2018-03-18] MEDS: ZOSYN 3.375 GM in NS 50 ML IV SCH ×4 (03:02→21:01)
[2018-03-18] MEDS: DUONEB (A & A) INH SCH ×4 (03:35→20:13)
[2018-03-18] MEDS: PERCOCET-10 PO PRN ×2 (04:59→13:16)
[2018-03-18] MEDS: MOVANTIK PO SCH (06:06)
[2018-03-18 07:18] LABS: BASO# 0.03 X1000 (0.0-0.2); BASO% 0.6 % (0.0-0.8); EOS# 0.28 X1000 (0.0-0.7); EOS% 5.3 % (0.0-10.0); HEMATOCRIT 40.3 % (37.0-47.0); LYMPH% 54.4 % (20.5-51.1); MCH 31.2 PG (27-31); MCHC 32.3 g/dL (33-37); MCV 96.6 FL (81-99); MONO# 0.42 X1000 (0.11-0.59); MONO% 7.9 % (1.7-9.3); MPV 8.6 FL (7.4-10.4); NEUT% 31.8 % (42.2-75.2); PLT 254 X1000 (130-400); RBC 4.17 XMIL (4.2-5.4); RDW 14.9 % (11.5-14.5); WBC 5.33 X1000 (4.8-10.8)
[2018-03-18 07:33] LABS: AGAP 12; BUN 6 mg/dL (8-22); CALCIUM 8.6 mg/dL (8.8-10.2); CHLORIDE 105 mmol/L (98-107); COSMO 282; CREATININE 0.7 mg/dL (0.5-0.9); ESTIMATED GFR > 60; GLUCOSE 92 mg/dL (70-104); POTASSIUM 3.7 mmol/L (3.5-5.1); SODIUM 143 mmol/L (136-145); TCO2 26 mmol/L (25-35)
[2018-03-18] MEDS: VITAMIN D PO SCH (09:27)
[2018-03-18] MEDS: NICODERM PATCH TD SCH (09:27)
--- NOTE | 2018-03-18 12:13 | PROGRESS NOTE ---
DATE: 03/18/2018 SUBJECTIVE: The patient is doing okay. No complaints at this time. No acute issues noted. OBJECTIVE: Vital Signs: Temperature 97.9 degrees, heart rate 66, respiratory rate 16, blood pressure 126/72, O2 saturation 98% on room air. General Examination: This is a 67-year-old female lying in bed, in no acute distress. Cardiovascular: S1, S2 heard. No murmurs, gallops, or rubs. Regular rate and rhythm. Respiratory: Clear bilaterally to auscultation. No work of breathing or using accessory muscles. Abdomen: Soft. Nontender to palpation. Bowel sounds present. No organomegaly. Extremities: No clubbing, cyanosis, or edema. Peripheral pulses present in both legs. Neurological: Patient is alert and oriented x3. Moves 4 extremities. LABORATORY DATA: Reviewed. ASSESSMENT AND PLAN: 1. Hypotension, resolved. Initially we were thinking this patient had developed sepsis but she has not. She is currently on Zosyn for possible UTI, even though the urine culture did not reveal any infection. She was complaining of urinary symptoms that is why we have continued with antibiotics. 2. Chronic kidney disease stage 2. Creatinine is at baseline. We will continue with the same management. 3. Chronic back pain. We will continue home medications. 4. Acute encephalopathy. Patient has been very confused during the last previous days and nights too. For concerns related to dementia, we agree with the family to consult with Dr. Oscar from Neurology. We will see what they have to say. In the meantime, we will continue with physical therapy for this patient. 5. Chronic obstructive pulmonary disease. The patient is a very heavy smoker. She continues to smoke 2 packs per day but, of course, not in the hospital. At this time she is on nicotine patch. 6. Disposition. We are waiting Neurology recommendation. Because of those hallucinations, [facility] has been consulted but, of course, they refuse to take this patient. Also family requested to send this patient to rehab. abatement worker has been consulted. We will follow recommendations. cc: Mikey Eastman MD
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
[2018-03-18] MEDS: EFFEXOR PO SCH (21:02)
[2018-03-18] MEDS: ZYPREXA PO SCH (21:02)
[2018-03-19] MEDS: ZOSYN 3.375 GM in NS 50 ML IV SCH ×3 (02:17→15:01)
[2018-03-19] MEDS: DUONEB (A & A) INH SCH ×2 (04:00→09:08)
[2018-03-19] MEDS: MOVANTIK PO SCH (06:09)
[2018-03-19] MEDS: PERCOCET-10 PO PRN ×2 (06:39→15:01)
[2018-03-19 08:10] LABS: BASO# 0.01 X1000 (0.0-0.2); BASO% 0.2 % (0.0-0.8); EOS# 0.43 X1000 (0.0-0.7); HEMATOCRIT 41.5 % (37.0-47.0); HEMOGLOBIN 13.2 g/dL (12.0-16.0); IMM GRAN# 0.02 X1000 (0.0-0.04); IMM GRAN% 0.3 % (0.0-0.5); LYMPH# 2.26 X1000 (1.2-3.4); LYMPH% 36.9 % (20.5-51.1); MCH 30.4 PG (27-31); MCHC 31.8 g/dL (33-37); MCV 95.6 FL (81-99); MONO# 0.42 X1000 (0.11-0.59); MONO% 6.9 % (1.7-9.3); MPV 8.7 FL (7.4-10.4); NEUT# 2.99 X1000 (1.4-6.5); NEUT% 48.7 % (42.2-75.2); PLT 246 X1000 (130-400); RBC 4.34 XMIL (4.2-5.4); RDW 14.8 % (11.5-14.5); WBC 6.13 X1000 (4.8-10.8)
[2018-03-19 08:28] LABS: AGAP 15; BUN 7 mg/dL (8-22); CALCIUM 8.7 mg/dL (8.8-10.2); CHLORIDE 105 mmol/L (98-107); COSMO 276; CREATININE 0.8 mg/dL (0.5-0.9); ESTIMATED GFR > 60; GLUCOSE 104 mg/dL (70-104); POTASSIUM 4.2 mmol/L (3.5-5.1); SODIUM 139 mmol/L (136-145); TCO2 19 mmol/L (25-35)
[2018-03-19] MEDS: NICODERM PATCH TD SCH (09:45)
[2018-03-19] MEDS: VITAMIN D PO SCH (09:45)
[2018-03-19 14:20] VITALS: BP 146/75
--- NOTE | 2018-03-20 06:17 | DISCHARGE SUMMARY ---
ADMISSION DATE: 03/14/2018 DISCHARGE DATE: 03/19/2018 CONSULTATIONS: Dr. Syeda Valdivia with Neurology. PERTINENT PROCEDURES: 1. Head CT negative exam. 2. Carotid Doppler's showed no hemodynamically significant lesion or atherosclerotic disease noted in the bilateral carotid artery system. 3. Echocardiogram showed mild tricuspid regurgitation with estimated pulmonary artery pressure of 35 mmHg with EF of 65%. 4. Chest CT stable. DISCHARGE DIAGNOSES: 1. Hypotension, resolved. 2. Sepsis was ruled out. 3. Chronic kidney disease stage 2. Patient is at baseline creatinine. 4. Chronic back pain. Continue home medications. 5. Acute encephalopathy. 6. The patient had been very confused for which Neurology was consulted. Head CT was negative. She did show some symptoms of urinary tract infection that have resolved. Patient is now alert and oriented, and her encephalopathy has resolved. They recommend dementia evaluation as an outpatient setting. Given her complex list of medications and possibly self medicating were a concern, but they did feel that a combination of medications is not taken correctly in addition to urinary tract infection could predispose someone to adverse symptoms. Again, her symptoms have resolved. She will be discharged home with family. 7. Probable urinary tract infection. Patient was started on IV antibiotics. However, culture did not reveal any infection. Resume with Omnicef for 7 more days. 8. Chronic obstructive pulmonary disease without exacerbation. Patient is a heavy smoker. She continues to smoke 2 packs per day. She was provided with a nicotine patch, and educated daily on smoking cessation as well as the means to quit once she was more awake and alert, oriented, as well as educated the family. HOSPITAL COURSE: Briefly, Ms. Dennis is a 67-year-old female with past medical history of chronic back pain that she goes to the [facility] for. Depression, anxiety and migraines, a 2 pack per day smoker, COPD, and chronic kidney disease. Per family, she tends to have self medication issues with her pain medication and anxiety. The patient reported frequent falls, dizziness, and urinary tract infection symptoms. She was hypotensive initially. Upon admission, she was ruled out for sepsis. She was treated with IV antibiotics for possible UTI. Head CT was negative. She responded to fluid bolus. The patient while admitted became confused mostly in the evening and at nighttime. Early in her admission, she did become combative overnight. She did improve throughout the course of her hospital stay. She was evaluated by Neurology. She has not had any further falls since being hospitalized and with the resolution of her urinary tract symptoms. Neurology would like to evaluate her on an outpatient basis for diagnosis of dementia. They do believe that a combination of medications if not taken correctly in addition to a urinary tract infection could predispose her to her adverse symptoms. They will be happy to follow up with her on outpatient for a formal dementia evaluation. She has had adjustments made to some of her medications, and will be discharged back home with family. She has been up and walking the hallways. She is ambulated 500 feet and going to the restroom on her own accord. Vital signs at time of discharge, temperature is 97.5 degrees, heart rate 81, respirations 16, blood pressure 146/75, and O2 is 96% on room air. DISCHARGE DIET: Regular. DISCHARGE MEDICATIONS: 1. Seroquel 50 mg p.o. at bedtime. 2. Norvasc 10 mg p.o. daily. 3. Vitamin D3 1000 units p.o. daily. 4. Movantik 25 mg p.o. daily. 5. Zanaflex 4 mg p.o. t.i.d. for muscle spasms. 6. Olanzapine 5 mg p.o. at bedtime. 7. Ambien 5 mg p.o. at bedtime. 8. Omnicef 300 mg p.o. b.i.d. for 7 days. 9. Oxycodone 1 each p.o. q.8 hours 10/3.5 mg tablets. 10. Bactrim DS 1 each p.o. q.12 hours. 11. Effexor 75 mg p.o. daily. FOLLOWUP: Ms. Dennis is being discharged back home with family. She is to follow up with her primary care provider Dr. Justice Jaimes. She can return to the ED or call 911 for any worsening of symptoms. Discharge time, 35minutes Dictated by CHIARA Laura for Austin Ledezma MD cc: MD Austin Casanova MD [facility]
== END 2018-03-19 19:38 | DRG 917 ==
LOC: SUPCPDRO → ED 09:48 → 3S 16:46 → SUATTDRO 16:46 → 3N 03-16 11:02
PROVIDERS: ATTEND Internal Medicine
CPT/HCPCS: 70450; 71010; 71045; 71250; 80048; 80053; 80101; 80301; 80307; 80320; 80324; 80345; 80346; 80353; 80358; 80361; 80365; 81001; 82055; 82550; 82553; 82805; 82948; 83605; 83735; 83880; 83992; 84484; 85025; 85610; 85730; 87040; 87088; 93005; 93010; 93306; 93880; 94640; 94761; 94762; 96361; 96365; 96366; 96368; 97116; 97162; 97530; 99285; A9270; G0431; G0434; G0479; G0480; G6040; J2358; J2543; J3370; J3480; J7030; J7040; XXXXX